=== PATIENT | female | born 1980 | race Caucasian/White ===

== ENCOUNTER 2018-03-15 21:06 | Emergency (ER) | payer MEDICAID ==
[~2018-03-15] VITALS: Ht 177.8 cm; Wt 104.2 kg
[2018-03-15 21:10] VITALS: BP 161/99
[2018-03-15] MEDS ORDERED: LIDOCAINE-MPF 1%, 5ML ONE (21:29)
[2018-03-15] MEDS ORDERED: LIDOCAINE 1%, 10ML INFIL ONE (21:30)
[2018-03-15] MEDS ORDERED: DIPH,PERTUSS(ACELL),TET VAC/PF 0.5 ML IM-VACC ONE ×2 (21:30→21:45)
[2018-03-15] MEDS ORDERED: BACITRACIN ZINC OINT 500U/GM, 0.9 GM ONE (22:16)
== END 2018-03-15 22:38 | disposition home or self-care (01) ==
LOC: ED 21:46
DX: S91.312A Laceration without foreign body, left foot, initial encounter (principal); W20.8XXA Other cause of strike by thrown, projected or falling object, initial encounter; Y93.89 Activity, other specified; Y99.8 Other external cause status; Y92.009 Unspecified place in unspecified non-institutional (private) residence as the place of occurrence of the external cause
CPT/HCPCS: 12001; 90471; 90715; 99283